=== PATIENT | female | born 1970 | race Caucasian/White ===

== ENCOUNTER 2020-10-08 11:54 | Emergency (ER) | payer OTHER ==
[2020-10-08 14:24] LABS: BASOPHIL 0.8 % (0-2); EOSINOPHIL 2.3 % (0-5); HCT 39.3 % (37.0-47.0); LYMPHOCYTE 19.3 % (15-48); MCH 31.9 pg (25.0-31.0); MCHC 33.1 g/dL (32.0-36.0); MCV 96.3 fL (78.0-100.0); MONOCYTE 18.4 % (0-12); MPV 9.7 fL (6.0-9.5); NEUTROPHIL 58.8 % (41-80); NRBC 0; PLT 236 K/uL (150-400); RBC 4.08 M/uL (4.20-5.40); RDW 12.9 % (11.5-14.0); WBC 4.8 K/uL (4.0-10.5)
[2020-10-08 14:53] LABS: BILIRUBIN NEGATIVE (NEGATIVE); BLOOD NEGATIVE Ery/uL (NEGATIVE); CLARITY CLEAR (CLEAR); COLOR YELLOW (YELLOW); GLUCOSE (U) NORMAL (NORMAL); LEUKOCYTES NEGATIVE Leu/uL (NEGATIVE); NITRITE NEGATIVE (NEGATIVE); PROTEIN NEGATIVE (NEGATIVE); UROBILINOGEN 0.2 mg/dL (0.2-1.0)
[2020-10-08 14:58] LABS: SQUAMOUS EPITHELIAL CELLS RARE; URINARY WBC RARE
[2020-10-08 15:17] LABS: ALBUMIN 3.7 g/dL (3.4-5.0); BILIRUBIN - TOTAL 0.2 mg/dL (0.2-1.0); CREATININE 0.8 mg/dL (0.51-0.95); GLOBULIN (CALCULATION) 3.3 g/dL; POTASSIUM 4.6 mmol/L (3.5-5.1)
== END 2020-10-08 17:41 | disposition home or self-care (01) ==
LOC: FER 11:54
PROVIDERS: Physician Assistant
DX: U07.1 COVID-19 (principal); J12.82 Pneumonia due to coronavirus disease 2019; Z87.891 Personal history of nicotine dependence
CPT/HCPCS: 36415; 71045; 80053; 81001; 84484; 85025; 93005; U0002